=== PATIENT | female | born 1975 ===

== ENCOUNTER 2022-04-24 06:40 | Day surgery (SDC) | payer OTHER ==
[2022-04-24] MEDS ORDERED: ACETAMINOPHEN500 M1 PO (11:56)
== END 2022-04-24 14:35 | disposition home or self-care (01) ==
LOC: CIR.AMB 06:40
PROVIDERS: ATTEND Obstetrics & Gynecology
DX: N87.9 Dysplasia of cervix uteri, unspecified (principal); N72 Inflammatory disease of cervix uteri; Z20.822 Contact with and (suspected) exposure to COVID-19